=== PATIENT | female | born 1960 | race Caucasian/White ===

== ENCOUNTER 2022-09-02 18:14 | Observation (INO) ==
--- NOTE | 2022-09-02 20:45 | ED.ABDFE ---
HPI Time Seen Time Seen by Provider: 09/02/22 20:44 PCP Primary Care Physician: ROGER LANDIS HPI Comment HPI Comment: PATIENT IS 62YR OLD FEMALE IN ER WITH ABDOMINAL PAIN SINCE THIS AM. DENIES FEVER, DYSURIA, VOMITING OR NAUSEA. GETTING WORSE. ON MEDICATION FOR UTI. Complaint Doctors Chief Complaint Comments: ABDOMINAL PAIN SINCE THIS AM. ON MED FOR UTI. DENIES DYSURIA. Chief Complaint:: PT AMBULATORY IN ED WITH C/O GENERALIZED ABD PAIN SINCE THIS AM. PT STATES SHE IS ON ANTIBIOTICS FOR UTI. COVID-19 Coronavirus risk:travel/contact w/high risk person: No Has patient experienced Coronavirus symptoms: No Source History Provided: Patient Mode of arrival Mode of Arrival: Ambulatory Timing Onset of Chief Complaint: 09/02/22 PMH PMH Past Medical History: Yes Past Medical History: Arthritis, Depression, Dyslipidemia, GERD and Hypertension Past Surgical History: Yes Past Surgical History Comment: LEFT BREAST BIOPSY Family History History of Family Medical Conditions: Yes Family Medical History: Cancer, [place], Coronary Artery Disease and Hypertension Social History Does patient currently use any type of tobacco product: No Have you used tobacco products in the last 12 months: No Type of Tobacco Use: None Does any household member use tobacco: No Alcohol Use: None Do you use any recreational Drugs:: No Lives With: Alone Lives Where: Home Travel Risk Coronavirus risk:travel/contact w/high risk person: No Has patient experienced Coronavirus symptoms: No Infectious screening In the last 2 months have you had wt loss of >10#?: NO Have you had fever, night sweats or hemotysis?: No Have you traveled outside the country in the last 6 months?: No Isolation: Standard ROS Review of Systems Constitutional: No Symptoms Reported; negative Fever, Weakness or Fatigue Eyes: No Symptoms Reported; negative Blurred Vision ENTM: No Symptoms Reported; negative Nose Discharge or Nose Congestion Respiratoy: Short of Breath; negative Moist Cough or Wheezing Cardiovascular: Chest Pain; negative Edema or Syncope Gastrointestinal/Abdominal: Abdominal Pain; negative Diarrhea, Nausea or Vomiting Genitourinary: No Symptoms Reported Neurological: No Symptoms Reported Musculoskeletal: No Symptoms Reported Integumentary: No Symptoms Reported Hematologic/Lymphatic: No Symptoms Reported Endocrine: No Symptoms Reported Psychiatric: No Symptoms Reported All Other Systems: Reviewed and Negative PE Vital Signs Vitals: Temperature 98.2 F Pulse Rate 91 Respiratory Rate 20 Blood Pressure 193/96 O2 Sat by Pulse Oximetry 97 General Limitations: No Limitations General Appearance: Alert and In No Apparent Distress Head Head Exam: Normal Inspection and Atraumatic Eyes Eye exam: Normal Appearance; negative Scleral Icterus or Conjunctival Injection ENT ENT Exam: Normal Exam, Normal Oropharynx, Normal External Ear Exam and TM's Normal Bilaterally Neck Neck Exam: Normal Inspection; negative Trachea Midline or Tenderness Chest Chest Inspection: Normal Inspection and Symmetric Chest Wall Rise; negative Tenderness Respiratory Respiratory Exam: Normal Lung Sounds Bilat; negative Accessory Muscle Use, Chest Wall Tenderness or Respiratory Distress Respiratory Exam: Bilateral: Clear to Auscultation Cardiovascular Cardiovascular Exam: Regular Rate, Normal Rhythm and Normal Heart Sounds; negative Systolic Murmur or Diastolic Murmur Abdominal Exam Abdominal Exam: Normal Inspection, Normal Bowel Sounds and Soft; negative Tenderness Rectal Rectal Exam: Deferred Back Back Exam: Normal Inspection; negative (R) CVA Tenderness or (L) CVA Tenderness Extremeties Extremities Exam: Normal Inspection and Normal Capillary Refill External Exam: Female: Deferred : Speculum Exam (Female): Deferred : Bimanual Exam (female): Deferred Neurologic Neurological Exam: Alert and Oriented X3; negative Motor Sensory Deficit Psychiatric Psychiatric Exam: Normal Affect Skin Skin Exam: Intact MDM Differential Diagnosis Differential Diagnosis- Considerations may include:: Bowel Obstruction, Cholelethiasis, Constipation, Diverticular disease, Gastritus/PUD, Inflammatory BD, Urinary tract infection and Urolithiasis Other differential diagnosis: ABD PAIN, UTI, KIDNEY STONE, DIVERTICULITIS, IBD, CONSTIPATION. COURSE Treatment Treatment: SEE ORDERS DONE WHILE PATIENT WAS IN ER. LABS AND XRAY REPORT DISCUSSED WITH PATIENT. PATIENT WILL BE ADMITTED FOR FURTHER MANAGEMENT. Consultation Consultation Comments: DISCUSSED PATIENT WITH DR. MAE. HE WILL ADMIT PATIENT. Education/Counseling Education/Counseling: Patient Educated On: Diagnosis ROR Labs Reviewed Laboratory Results Reviewed?: Yes Result Diagrams: 09/04/22 05:52 09/04/22 05:32 Laboratory: WBC 11.2 X10^3/uL (3.6-10.0) H 09/02/22 21:20 RBC 5.41 X10^6/uL (3.5-5.4) H 09/02/22 21:20 Hgb 15.0 g/dL (12.0-16.0) 09/02/22 21:20 Hct 44.5 % (36.0-47.0) 09/02/22 21:20 MCV 82.2 fL (80.0-100.0) 09/02/22 21:20 MCH 27.8 pg (27.0-34.0) 09/02/22 21:20 MCHC 33.8 g/dL (33.0-35.0) 09/02/22 21:20 RDW 13.7 % (11.6-16.5) 09/02/22 21:20 Plt Count 257 X10^3/uL (150.0-450.0) 09/02/22 21:20 MPV 7.4 fL (7.4-11.0) 09/02/22 21:20 Neut % (Auto) 67.6 % (42.0-75.0) 09/02/22 21:20 Lymph % (Auto) 24.9 % (21.0-51.0) 09/02/22 21:20 Iron % (Auto) 6.0 % (0.0-13.0) 09/02/22 21:20 Eos % (Auto) 0.8 % (0.9-2.9) L 09/02/22 21:20 Baso % (Auto) 0.7 % (0.2-1.0) 09/02/22 21:20 Neut # (Auto) 7.6 x10^3/uL (2.2-4.8) H 09/02/22 21:20 Lymph # (Auto) 2.8 X10^3/uL (1.3-2.9) 09/02/22 21:20 Iron # (Auto) 0.7 x10^3/uL (0.3-0.8) 09/02/22 21:20 Eos # (Auto) 0.1 x10^3/uL (0.0-0.2) 09/02/22 21:20 Baso # (Auto) 0.1 X10^3/uL (0.0-0.1) 09/02/22 21:20 Absolute Nucleated RBC 0.0 /100WBC 09/02/22 21:20 Sodium 140 mmol/L (136-145) 09/02/22 21:20 Corrected Sodium 141 mmol/L (136-145) 09/02/22 21:20 Potassium 3.6 mmol/L (3.5-5.1) 09/02/22 21:20 Chloride 104 mmol/L (98-107) 09/02/22 21:20 Carbon Dioxide 25.5 mmol/L (21-32) 09/02/22 21:20 BUN 16 mg/dL (7-18) 09/02/22 21:20 Creatinine 0.74 mg/dL (0.55-1.02) 09/02/22 21:20 Est GFR (MDRD) Af Amer > 60 (>60) 09/02/22 21:20 Est GFR (MDRD) Non-Af > 60 (>60) 09/02/22 21:20 Glucose 123 mg/dL (65-99) H 09/02/22 21:20 Calcium 8.6 mg/dL (8.5-10.1) 09/02/22 21:20 Corrected Calcium TNP 09/02/22 21:20 Total Bilirubin 0.50 mg/dL (0.2-1.0) 09/02/22 21:20 AST 19 Units/L (15-37) 09/02/22 21:20 ALT 25 Units/L (12-78) 09/02/22 21:20 Alkaline Phosphatase 73 Units/L (46-116) 09/02/22 21:20 Total Protein 7.0 g/dL (6.4-8.2) 09/02/22 21:20 Albumin 3.8 g/dL (3.4-5.0) 09/02/22 21:20 Globulin 3.2 g/dL (2.5-4.5) 09/02/22 21:20 Albumin/Globulin Ratio 1.2 Ratio (1.1-2.1) 09/02/22 21:20 Specimen Type Clean catch urine 09/02/22 21:24 Urine Color Yellow (YELLOW) 09/02/22 21:24 Urine Appearance Hazy (CLEAR) 09/02/22 21:24 Urine pH 5.0 (5.0 - 8.0) 09/02/22 21:24 Ur Specific [place] 1.025 (1.000-1.030) 09/02/22 21:24 Urine Protein 1+ (NEGATIVE) 09/02/22 21:24 Urine Glucose (UA) Negative (NEGATIVE) 09/02/22 21:24 Urine Ketones Negative (NEGATIVE) 09/02/22 21:24 Urine Blood 2+ (NEGATIVE) 09/02/22 21:24 Urine Nitrite Negative (NEGATIVE) 09/02/22 21:24 Urine Bilirubin 1+ (NEGATIVE) 09/02/22 21:24 Urine Urobilinogen Normal (NORMAL) 09/02/22 21:24 Ur Leukocyte Esterase 1+ (NEGATIVE) 09/02/22 21:24 Urine RBC 3-5 /HPF (0-3) A 09/02/22 21:24 Urine WBC 0-2 /HPF (0-5) 09/02/22 21:24 Ur Squamous Epith Cells Few /HPF (NEGATIVE) 09/02/22 21:24 Calcium Oxalate Crystal Many /HPF (NEGATIVE) 09/02/22 21:24 Urine Bacteria Trace /HPF (NEGATIVE) 09/02/22 21:24 Urine Mucus Many /HPF (NEGATIVE) 09/02/22 21:24 Ur Culture Indicated? No/not indicated 09/02/22 21:24 XRAY XRAY Interpreted by: Radiologist (REPORT NOTED.) and Self Opioid Opioid Risk Tool Age (Sai box if 16-45): No History of Preadolescent Sexual Abuse: No Total: 0 Total Score Risk Category: Low Risk Copyright: Giovanny BUCHANAN predicting aberrant behaviors Discharge Plan Diagnosis Discharge Problem: Abdominal pain, Small bowel obstruction due to adhesions Discharge Plan Patient Disposition: ADMITTED INPATIENT Condition: Stable Orders to Discharge Patient Discharge Orders: Discharge (Routine); Ordered 09/04/22 Ordered By: PEDRO LUIS MAE
[2022-09-02] MEDS ORDERED: ZOFRAN INJ 4 MG VIAL IM ONE (21:12)
[2022-09-02] MEDS ORDERED: ZOFRAN INJ 4 MG VIAL ONE (21:16)
[2022-09-02 21:34] LABS: BASOPHILS # (AUTO) 0.1 X10^3/uL (0.0-0.1); BASOPHILS % (AUTO) 0.7 % (0.2-1.0); EOSINOPHILS # (AUTO) 0.1 x10^3/uL (0.0-0.2); EOSINOPHILS % (AUTO) 0.8 % (0.9-2.9); HEMATOCRIT 44.5 % (36.0-47.0); LYMPHOCYTES # (AUTO) 2.8 X10^3/uL (1.3-2.9); LYMPHOCYTES % (AUTO) 24.9 % (21.0-51.0); MEAN CORPUSCULAR HEMOGLOBIN 27.8 pg (27.0-34.0); MEAN CORPUSCULAR HGB CONC 33.8 g/dL (33.0-35.0); MEAN CORPUSCULAR VOLUME 82.2 fL (80.0-100.0); MEAN PLATELET VOLUME 7.4 fL (7.4-11.0); MONOCYTES # (AUTO) 0.7 x10^3/uL (0.3-0.8); NEUTROPHILS # (AUTO) 7.6 x10^3/uL (2.2-4.8); NEUTROPHILS % (AUTO) 67.6 % (42.0-75.0); PLATELET COUNT 257 X10^3/uL (150.0-450.0); RED BLOOD COUNT 5.41 X10^6/uL (3.5-5.4); RED CELL DISTRIBUTION WIDTH 13.7 % (11.6-16.5); WHITE BLOOD COUNT 11.2 X10^3/uL (3.6-10.0)
[2022-09-02 21:36] LABS: BILIRUBIN,URINE 1+ (NEGATIVE); BLOOD/HEMOGLOBIN,URINE 2+ (NEGATIVE); GLUCOSE, URINE NEGATIVE (NEGATIVE); KETONES,URINE NEGATIVE (NEGATIVE); LEUKOCYTE ESTERASE ,URINE 1+ (NEGATIVE); NITRITES,URINE NEGATIVE (NEGATIVE); PROTEIN,URINE 1+ (NEGATIVE); UROBILINOGEN,URINE NORMAL (NORMAL)
[2022-09-02 21:39] LABS: APPEARANCE,URINE HAZY (CLEAR); COLOR,URINE YELLOW (YELLOW)
[2022-09-02 21:42] LABS: ALANINE AMINOTRANSFERASE 25 Units/L (12-78); ALBUMIN 3.8 g/dL (3.4-5.0); ALKALINE PHOSPHATASE 73 Units/L (46-116); ASPARTATE AMINO TRANSFERASE 19 Units/L (15-37); BLOOD UREA NITROGEN 16 mg/dL (7-18); CALCIUM 8.6 mg/dL (8.5-10.1); CARBON DIOXIDE 25.5 mmol/L (21-32); CHLORIDE 104 mmol/L (98-107); COR NA(FOR HYPERGLY) 141 mmol/L (136-145); CREATININE 0.74 mg/dL (0.55-1.02); GLUCOSE 123 mg/dL (65-99); POTASSIUM 3.6 mmol/L (3.5-5.1); SODIUM 140 mmol/L (136-145); eGFR NON BLACK RACES > 60 (>60)
[2022-09-02 21:45] LABS: BACTERIA,URINE TRACE /HPF (NEGATIVE); CALCIUM OXALATE CRYSTALS,UR MANY /HPF (NEGATIVE); SQUAMOUS EPITHELIAL CELL,UR FEW /HPF (NEGATIVE)
--- NOTE | 2022-09-02 22:30 | CT ---
HISTORYAbdominal painSTUDYABDOMEN/PELVIS W/O CONCOMPARISONNoneTECHNIQUENon-contrasted axial CT images of the abdomen and pelvis were obtained and reformatted into coronal and sagittal planes for further evaluation.Radiation dose: 273.49 mGy-cm total DLPFINDINGSLung bases are clear.Small sliding-type hiatal hernia.Stomach appears normal.Diffuse fatty infiltration of the liver.Spleen, pancreas and adrenal glands are unremarkable.Atherosclerotic changes to the abdominal aorta and iliac vessels without aneurysm.Possible stones or noncalcified gallstones in the majority of the gallbladder lumen with no imaging findings of acute cholecystitis.No intra or extrahepatic biliary dilatation.Nonobstructing 1 mm interpolar right nephrolith.Otherwise, unremarkable appearance of the kidneys and ureters.Unremarkable appearance of the urinary bladder.Multiple mildly distended fluid-filled loops of small bowel in the left and mid abdomen with associated edema in the mesentery.Distal small bowel is largely decompressed.Transition point from dilated to more decompressed small bowel in the left abdomen with there is a low-attenuation band extending across the bowel as seen on axial image 44 and coronal image 17.Reproductive structures are unremarkable.No evidence of acute appendicitis.No pneumoperitoneum.Trace nonspecific free fluid in the pelvis.No adenopathy.No acute osseous abnormality.IMPRESSION1. Findings are most consistent with a [id number] grade mechanical small bowel obstruction in the left mid abdomen; likely secondary to an adhesion.2. Diffuse fatty infiltration of the liver.3. Possible stones or noncalcified gallstones in the majority of the gallbladder lumen with no imaging findings of acute cholecystitis.4. Nonobstructing 1 mm right nephrolith.Electronically signed by: Tyrese Moreira (Sep 02, 2022 22:29:19)
[2022-09-02] MEDS ORDERED: NS 1,000 ML IV 1,000 ML ONE (23:26)
[2022-09-02] MEDS: NS 1,000 ML IV 1,000 ML IV SCH (23:30)
[2022-09-03] MEDS ORDERED: APRESOLINE INJ 20 MG VIAL IVP ONE (00:04)
[2022-09-03] MEDS ORDERED: APRESOLINE INJ 20 MG VIAL ONE (00:05)
[2022-09-03] MEDS ORDERED: ZOFRAN INJ 4 MG VIAL IVP ONE (00:33)
[2022-09-03] MEDS ORDERED: DEMEROL INJ ONE (00:35)
[2022-09-03] MEDS ORDERED: ZOFRAN INJ 4 MG VIAL ONE (00:35)
[2022-09-03] MEDS: DEMEROL INJ IVP PRN ×3 (00:41→13:05)
[2022-09-03 00:53] VITALS: BMI 30.2
--- NOTE | 2022-09-03 06:54 | RAD ---
HISTORYAbdomen painSTUDYKUBCOMPARISONCT abdomen September 02, 2022FINDINGSRadiographic detail is limited and suboptimal on this image.There is no significant intestinal dilatation, mass, organ enlargement or pathologic calcification.IMPRESSIONNo specific abnormality identified. See above.Electronically signed by: PEPITO CHONG (Sep 03, 2022 06:52:44)
--- NOTE | 2022-09-03 08:40 | DR.PROGNOT ---
HOSPITAL PROGRESS NOTE Progress Note for Day of: Progress Note Date: 09/03/22 Chief Complaint Chief Complaint: still c/o RT side abdominal pain . vomitied last night . KUB showed improved SBO. Past Medical Family Social History Past Med/Fam/Surg Hx: No changes since H&P Allergies: Allergies No Known Allergies Allergy (Verified 09/02/22 18:40) Vital Signs Vital Signs: Temperature 98.0 F Pulse Rate [Right] 82 Pulse Rate 93 Respiratory Rate 20 Blood Pressure [Right Arm] 165/79 Blood Pressure 176/99 O2 Sat by Pulse Oximetry 96 Physical Exam Oriented: Normal Eyes: Normal Respiratory: Normal Cardiovascular: Normal GI:Palpation: Other (soft,full abdomen with RT side tenderness , no rebound BS+) Speech Pattern: Clear and Appropriate Laboratory and Diagnostics Result Diagrams: 09/02/22 21:20 09/02/22 21:20 Labs: Laboratory WBC 11.2 X10^3/uL (3.6-10.0) H 09/02/22 21:20 RBC 5.41 X10^6/uL (3.5-5.4) H 09/02/22 21:20 Hgb 15.0 g/dL (12.0-16.0) 09/02/22 21:20 Hct 44.5 % (36.0-47.0) 09/02/22 21:20 MCV 82.2 fL (80.0-100.0) 09/02/22 21:20 MCH 27.8 pg (27.0-34.0) 09/02/22 21:20 MCHC 33.8 g/dL (33.0-35.0) 09/02/22 21:20 RDW 13.7 % (11.6-16.5) 09/02/22 21:20 Plt Count 257 X10^3/uL (150.0-450.0) 09/02/22 21:20 MPV 7.4 fL (7.4-11.0) 09/02/22 21:20 Neut % (Auto) 67.6 % (42.0-75.0) 09/02/22 21:20 Lymph % (Auto) 24.9 % (21.0-51.0) 09/02/22 21:20 [place] % (Auto) 6.0 % (0.0-13.0) 04/29/23 21:20 Eos % (Auto) 0.8 % (0.9-2.9) L 09/02/22 21:20 Baso % (Auto) 0.7 % (0.2-1.0) 09/02/22 21:20 Neut # (Auto) 7.6 x10^3/uL (2.2-4.8) H 09/02/22 21:20 Lymph # (Auto) 2.8 X10^3/uL (1.3-2.9) 09/02/22 21:20 [place] # (Auto) 0.7 x10^3/uL (0.3-0.8) 09/02/22 21:20 Eos # (Auto) 0.1 x10^3/uL (0.0-0.2) 09/02/22 21:20 Baso # (Auto) 0.1 X10^3/uL (0.0-0.1) 09/02/22 21:20 Absolute Nucleated RBC 0.0 /100WBC 09/02/22 21:20 Sodium 140 mmol/L (136-145) 09/02/22 21:20 Corrected Sodium 141 mmol/L (136-145) 09/02/22 21:20 Potassium 3.6 mmol/L (3.5-5.1) 09/02/22 21:20 Chloride 104 mmol/L (98-107) 09/02/22 21:20 Carbon Dioxide 25.5 mmol/L (21-32) 09/02/22 21:20 BUN 16 mg/dL (7-18) 09/02/22 21:20 Creatinine 0.74 mg/dL (0.55-1.02) 09/02/22 21:20 Est GFR (MDRD) Af Amer > 60 (>60) 09/02/22 21:20 Est GFR (MDRD) Non-Af > 60 (>60) 09/02/22 21:20 Glucose 123 mg/dL (65-99) H 09/02/22 21:20 Calcium 8.6 mg/dL (8.5-10.1) 09/02/22 21:20 Corrected Calcium TNP 09/02/22 21:20 Total Bilirubin 0.50 mg/dL (0.2-1.0) 09/02/22 21:20 AST 19 Units/L (15-37) 09/02/22 21:20 ALT 25 Units/L (12-78) 09/02/22 21:20 Alkaline Phosphatase 73 Units/L (46-116) 09/02/22 21:20 Total Protein 7.0 g/dL (6.4-8.2) 09/02/22 21:20 Albumin 3.8 g/dL (3.4-5.0) 09/02/22 21:20 Globulin 3.2 g/dL (2.5-4.5) 09/02/22 21:20 Albumin/Globulin Ratio 1.2 Ratio (1.1-2.1) 09/02/22 21:20 Specimen Type Clean catch urine 09/02/22 21:24 Urine Color Yellow (YELLOW) 09/02/22 21:24 Urine Appearance Hazy (CLEAR) 09/02/22 21:24 Urine pH 5.0 (5.0 - 8.0) 09/02/22 21:24 Ur Specific [place] 1.025 (1.000-1.030) 09/02/22 21:24 Urine Protein 1+ (NEGATIVE) 09/02/22 21:24 Urine Glucose (UA) Negative (NEGATIVE) 09/02/22 21:24 Urine Ketones Negative (NEGATIVE) 09/02/22 21:24 Urine Blood 2+ (NEGATIVE) 09/02/22 21:24 Urine Nitrite Negative (NEGATIVE) 09/02/22 21:24 Urine Bilirubin 1+ (NEGATIVE) 09/02/22 21:24 Urine Urobilinogen Normal (NORMAL) 09/02/22 21:24 Ur Leukocyte Esterase 1+ (NEGATIVE) 09/02/22 21:24 Urine RBC 3-5 /HPF (0-3) A 09/02/22 21:24 Urine WBC 0-2 /HPF (0-5) 09/02/22 21:24 Ur Squamous Epith Cells Few /HPF (NEGATIVE) 09/02/22 21:24 Calcium Oxalate Crystal Many /HPF (NEGATIVE) 09/02/22 21:24 Urine Bacteria Trace /HPF (NEGATIVE) 09/02/22 21:24 Urine Mucus Many /HPF (NEGATIVE) 09/02/22 21:24 Ur Culture Indicated? No/not indicated 09/02/22 21:24 Assessment and Plan 1: resolving SBO. 2: possible gallstones . for GB US . on cleat liquid . repeat KUB in AM
[2022-09-03] MEDS: CELEXA PO SCH (08:49)
[2022-09-03] MEDS: PriLOSEC PO SCH (08:49)
[2022-09-03] MEDS: CARDIZEM CD 120 MG 24-HR PO SCH (08:56)
[2022-09-03] MEDS: NS 1,000 ML IV 1,000 ML IV SCH ×4 (08:57→23:57)
[2022-09-03] MEDS ORDERED: CARDIZEM CD 120 MG 24-HR PO SCH (09:00)
[2022-09-03] MEDS ORDERED: ZESTRIL TAB 10 MG PO SCH ×2 (09:00→21:00)
[2022-09-03] MEDS ORDERED: TYLENOL 325 MG TAB PO PRN (09:24)
[2022-09-03] MEDS ORDERED: ZOFRAN TAB 4 MG SL PRN (09:24)
[2022-09-03] MEDS ORDERED: PHENERGAN INJ 25 MG IM PRN (16:02)
--- NOTE | 2022-09-03 16:27 | RAD ---
HISTORYabd pain bowell obstruction, vomiting Relevant Clinical InformationSTUDYKUBCOMPARISONEarlier same dayFINDINGSEvaluation of the abdomen demonstrates a stable. Bowel gas pattern. No pathological soft tissue mass or calcification can be observed. The bony structures are grossly intact.IMPRESSIONNo evidence for acute abdominal pathology identified.Electronically signed by: KINGSLEY SINCLAIR (Sep 03, 2022 16:25:33)
[2022-09-03] MEDS: MORPHINE SULFATE INJ 2 MG INJ IVP PRN ×2 (17:12→21:05)
[2022-09-03] MEDS: ZOFRAN INJ 4 MG VIAL IVP PRN ×2 (17:13→22:55)
[2022-09-03] MEDS ORDERED: CRESTOR TAB 10 MG PO SCH (21:00)
[2022-09-04] MEDS: NS 1,000 ML IV 1,000 ML IV SCH ×3 (04:52→14:01)
--- NOTE | 2022-09-04 06:07 | RAD ---
HISTORYAbdominal pain, bowel [id number]/30/2022 .br.br.br.br nonobstructive. No abnormal masses or abnormal calcifications are identified. No significant small bowel dilatation identified. Regional skeleton is intact.IMPRESSIONUnremarkable KUBElectronically signed by: FRANCO SCOTT (September 04, 2022 06:06:37)
[2022-09-04 06:25] LABS: BASOPHILS % (AUTO) 0.5 % (0.2-1.0); EOSINOPHILS # (AUTO) 0.1 x10^3/uL (0.0-0.2); EOSINOPHILS % (AUTO) 1.1 % (0.9-2.9); HEMATOCRIT 36.4 % (36.0-47.0); HEMOGLOBIN 12.4 g/dL (12.0-16.0); LYMPHOCYTES # (AUTO) 2.5 X10^3/uL (1.3-2.9); LYMPHOCYTES % (AUTO) 29.7 % (21.0-51.0); MEAN CORPUSCULAR HGB CONC 34.1 g/dL (33.0-35.0); MEAN CORPUSCULAR VOLUME 82.1 fL (80.0-100.0); MEAN PLATELET VOLUME 7.3 fL (7.4-11.0); MONOCYTES # (AUTO) 0.7 x10^3/uL (0.3-0.8); MONOCYTES % (AUTO) 8.7 % (0.0-13.0); PLATELET COUNT 204 X10^3/uL (150.0-450.0); RED BLOOD COUNT 4.44 X10^6/uL (3.5-5.4); RED CELL DISTRIBUTION WIDTH 13.8 % (11.6-16.5); WHITE BLOOD COUNT 8.4 X10^3/uL (3.6-10.0)
[2022-09-04 06:43] LABS: ALANINE AMINOTRANSFERASE 19 Units/L (12-78); ALBUMIN 2.9 g/dL (3.4-5.0); ALKALINE PHOSPHATASE 58 Units/L (46-116); ASPARTATE AMINO TRANSFERASE 18 Units/L (15-37); BLOOD UREA NITROGEN 10 mg/dL (7-18); CALCIUM 7.8 mg/dL (8.5-10.1); CARBON DIOXIDE 26.6 mmol/L (21-32); CHLORIDE 107 mmol/L (98-107); COR CA(FOR HYPOALB) 8.7 mg/dL (8.5-10.1); COR NA(FOR HYPERGLY) 140 mmol/L (136-145); CREATININE 0.56 mg/dL (0.55-1.02); GLUCOSE 111 mg/dL (65-99); POTASSIUM 3.6 mmol/L (3.5-5.1); SODIUM 140 mmol/L (136-145); TOTAL PROTEIN 5.6 g/dL (6.4-8.2); eGFR NON BLACK RACES > 60 (>60)
--- NOTE | 2022-09-04 12:21 | US ---
HISTORYABDOMINAL PAINS, BOWEL OBSTRUCTIONAbdominal pain, nausea, and vomiting.Study: Right upper quadrant abdominal ultrasoundComparison: Abdominopelvic CT examination dated January 02, 2023.Technique: Multiple hernandez scale and color flow Doppler images of the right upper quadrant were obtained.Findings:The liver is heterogeneously echogenic/fatty in appearance. No focal intraparenchymal mass or intrahepatic biliary ductal dilatation can be observed. [The gallbladder fails to demonstrate evidence for cholelithiasis or layering sludge]. The common bile duct is unremarkable measuring 3 mm. [No pericholecystic fluid or gallbladder wall thickening can be observed]. The CBD measures [within normal limits]. The right kidney appears normal in size without focal parenchymal mass or nephrolithiasis. The right kidney measurers 12 x 6 cm. No hydronephrosis or perirenal fluid can be observed. The [pancreatic head and body are unremarkable. The pancreatic tail] is obscured by overlying bowel gas.IMPRESSION:The liver is heterogeneously echogenic/fatty in appearance, suggesting hepatic steatosis.Unremarkable gallbladder. No other right upper quadrant sonographic abnormalities are identified.Electronically signed by: LING MA III (September 04, 2022 12:20:38)
[2022-09-04 12:28] VITALS: BP 138/68
[2022-09-04] MEDS: PriLOSEC PO SCH (13:59)
[2022-09-04] MEDS: CARDIZEM CD 120 MG 24-HR PO SCH (13:59)
[2022-09-04] MEDS: CELEXA PO SCH (13:59)
== END 2022-09-04 15:45 | disposition home or self-care (01) ==
LOC: SUPCPDRO → ER 18:14 → MED/SURG 18:14
PROVIDERS: ADMIT Surgery; ATTEND Surgery
DX: F32.89 Other specified depressive episodes; I10 Essential (primary) hypertension; K21.9 Gastro-esophageal reflux disease without esophagitis; K56.690 Other partial intestinal obstruction; R10.84 Generalized abdominal pain; M19.90 Unspecified osteoarthritis, unspecified site; E78.2 Mixed hyperlipidemia; K76.0 Fatty (change of) liver, not elsewhere classified